=== PATIENT | female | born 1995 | race Caucasian/White ===

== ENCOUNTER 2023-07-09 14:58 | Emergency (ER) | payer SELFPAY ==
[2023-07-09] MEDS: Ondansetron 4 MG Tab.DIS PO ONE (16:56)
[2023-07-09] MEDS: fentaNYL 100 MCG/2 ML SDV IM ONE (16:57)
== END 2023-07-09 18:14 | disposition home or self-care (01) ==
LOC: JP.ED 14:58
DX: S09.90XA Unspecified injury of head, initial encounter (principal); Z90.710 Acquired absence of both cervix and uterus; Z88.1 Allergy status to other antibiotic agents; Z88.8 Allergy status to other drugs, medicaments and biological substances; W01.198A Fall on same level from slipping, tripping and stumbling with subsequent striking against other object, initial encounter
CPT/HCPCS: 70450; 70450-26; 72125; 72125-26; 76377; 76377-26; 96372; 99283; 99284; J3010; Q0162